=== PATIENT | female | born 2000 | race Two or more races ===

== ENCOUNTER 2021-01-13 16:57 | Emergency (ER) | payer OTHER ==
[~2021-01-13] VITALS: Ht 170.2 cm; Wt 95.3 kg
[2021-01-13] MEDS ORDERED: ALLEVE (17:33)
== END 2021-01-13 20:25 | disposition home or self-care (01) ==
LOC: ER 16:57
DX: K80.20 Calculus of gallbladder without cholecystitis without obstruction (principal)

== ENCOUNTER 2021-01-15 00:20 | Inpatient (IN) | payer OTHER ==
[~2021-01-15] VITALS: Ht 170.2 cm; Wt 95.3 kg
[~2021-01-15 00:20] MED LIST: ALLEVE
--- NOTE | 2021-01-15 00:34 | NUR ---
SE RECIBE PACIENTE FEMENINA DE 20 ANOS DE EDAD CON QUEJA PRINCIPAL DE DOLOR ABDOMINAL, NAUSEAS Y VOMITOS COMENZANDO DESDE HACE ALREDEDOR DE 3 PIÑA.
--- NOTE | 2021-01-15 00:48 | NUR ---
SE REALIZA EKG Y SE PRESENTA A CARLITA. SHANEO
--- NOTE | 2021-01-15 01:07 | NUR ---
PACIENTE ALERTA Y ORIENTADA X3. MANEJADA POR MRJuan Antonio CARDOZA QUIEN ORIENTA A PACIENTE SOBRE TX Y PROCEDIMIENTO A REALIZAR Y REFIRIO ENTENDER. REALIZA MUESTRAS DE JUANITO BAJO MEDIDAS ASEPTICAS Y CANALIZACION. ADMINISTRA MEDICAMENTOS ORDENADOS POR MD. SE MANTIENE BAJO OBSERVACION POR CAMBIOS SIGNIFICATIVOS EN WISAM CON BARANDAS ELEVADAS. PENDIENTE ENTREGA DE MUESTRA DE ORINA, PACIENTE CON ENVASE EN MANO.
--- NOTE | 2021-01-15 05:42 | NUR ---
PACIENTE CONSULTADO CON DR. OLIVER PENDIENTE VISITA DEL MISMO. SE NOTIFICO A LA CRISELDA MARYORIE SONOGRAMA ABDOMINAL.
--- NOTE | 2021-01-15 07:00 | NUR ---
SE RECIBE PTE ALERTA, ORIENTADA EN BOBBY [place] ESFER[place]. PTE EN WISAM CON BARANDAS ELEVADAS EN POSICION SEMI-ALLEN Y FRENOS AJUSTADOS POR SEGURIDAD. SE OBSERVA PTE CON BUEN PATRON RESPIRATORIO AL MOMENTO. SE VERIFICA CANALIZACION Y LA MISMA SE ENCUENTRA PATENTE Y SAURABH DE EDEMA Y ERITEMA. PTE AL MOMENTO NO REFIERE DOLOR. SE ESPERA POR CONSULTA Y SE MANTIENE BAJO OBSERVACION.
== END 2021-01-19 11:37 | disposition home or self-care (01) | DRG 446 ==
LOC: ER 00:20 → SEC-K 07:29 → SURG 07:29
PROVIDERS: ADMIT Surgery; ATTEND Surgery
PROC: BF37YZZ Magnetic Resonance Imaging (MRI) of Pancreas using Other Contrast (ICD-10-PCS; principal; 2021-01-15)
DX: K80.20 Calculus of gallbladder without cholecystitis without obstruction (principal); R74.8 Abnormal levels of other serum enzymes; R10.11 Right upper quadrant pain; Z20.822 Contact with and (suspected) exposure to COVID-19